=== PATIENT | male | born 1980 | race Caucasian/White ===

== ENCOUNTER 2016-07-31 22:27 | Emergency (ER) | payer BC ==
[~2016-07-31] VITALS: Ht 185.4 cm; Wt 116.6 kg
[2016-07-31] MEDS ORDERED: NKM (22:34)
[2016-07-31 22:36] VITALS: BP 128/83
--- NOTE | 2016-07-31 22:54 | Emergency Room Report ---
History of Present Illness General Chief Complaint: Laceration Source: Patient Present Illness HPI Is a 36-year-old [id number] male presents with a laceration to the right index finger. He was washing dishes and sustained a laceration from a knife. Onset discharge arrival. Denies any other complaint. Bleeding controlled. Throbbing pain. No other injury. Tetanus not up-to-date. Allergies: Coded Allergies: No Known Allergies (Unverified , 07/31/16) Patient History Past Medical History: none, see triage record, old chart reviewed Past Surgical History: none Pertinent Family History: none Social History: Denies: smoking Immunizations: other Reviewed Nursing Documentation: PMH: Agreed, PSxH: Agreed Review of Systems Eye: Denies: blurred vision, eye pain ENT: Denies: ear pain, nose congestion, throat swelling Respiratory: Denies: cough, shortness of breath Cardiovascular: Denies: chest pain, palpitations Gastrointestinal: Denies: abdominal pain, diarrhea, nausea, vomiting Musculoskeletal: Denies: back pain, joint pain Skin: Denies: rash Neurological: Denies: headache, numbness Endocrine: Denies: increased thirst, increased urine Hematologic/Lymphatic: Denies: easy bruising All Other Systems: negative except mentioned in HPI Physical Exam vitals unremarkable Sp02 EP Interpretation: reviewed, normal General Appearance: well appearing, no apparent distress, alert Head: normocephalic, atraumatic Eyes: bilateral eye EOMI, bilateral eye PERRL ENT: hearing grossly normal, normal pharynx Neck: full range of motion, supple, no meningismus Respiratory: chest non-tender, lungs clear, normal breath sounds Cardiovascular #1: regular rate, rhythm, no murmur Gastrointestinal: normal bowel sounds, non tender, no mass, no organomegaly, no bruit, non-distended Musculoskeletal: back normal, gait/station normal, normal range of motion, other - Right index finger: 2 cm laceration to the proximal phalanx. No tendon involvement. No foreign body. MCP, PIP, DIP joint intact. Neurologic: alert, oriented x3 Psychiatric: mood/affect normal Skin: warm/dry Procedures Laceration/Wound Repair Laceration/Wound Repair : Consent: Verbal Wound Location: upper extremity Wound's Depth, Shape: flap, stellate Wound Length (cm): 3 Wound Explored: clean Irrigated w/ Saline (ccs): 1000 Betadine Prep?: No Anesthesia: 1% Lidocaine Volume Anesthetic (ccs): 3 Suture Size/Type: 5:0, proline Number of Sutures: 6 Patient Tolerated: Well Complications: None Medical Decision Making Diagnostic Impression: Primary Impression: Laceration of finger of right hand Qualified Codes: S61.219A - Laceration without foreign body of unspecified finger without damage to nail, initial encounter ER Course Patient with laceration of the right index finger. No foreign body. No tendon laceration. Status: improved Disposition: HOME, SELF-CARE Condition: Stable Scripts Ibuprofen* (MOTRIN*) 600 Mg Tablet 600 MG ORAL THREE TIMES A DAY, #30 TAB 0 Refills Prov: KAROL ORTIZ M.D. 07/31/16 Cephalexin* (KEFLEX*) 500 Mg Capsule 500 MG ORAL TID, #21 CAP 0 Refills Prov: KAROL ORTIZ M.D. 07/31/16 Patient Instructions: Laceration Care, Adult Additional Instructions: Followup with your Dr. in 7 days. Suture out in 7-10 days. Return if symptom worsen. KAROL ORTIZ M.D. Jul 31, 2016 22:54
[2016-07-31] MEDS ORDERED: TdaP Vaccine 0.5ml Syr IM ONE (23:00)
[2016-07-31] MEDS ORDERED: Lidocaine 1% Plain 30 ml INJ ONE (23:00)
[2016-07-31] MEDS ORDERED: IBUPROFEN600 MG ORAL (23:21)
[2016-07-31] MEDS ORDERED: KEFLEX500 MG ORAL (23:21)
[2016-07-31 23:32] VITALS: BP 124/83
== END 2016-07-31 23:32 | disposition home or self-care (01) ==
LOC: EMR 23:10
DX: S61.219A Laceration without foreign body of unspecified finger without damage to nail, initial encounter (principal); W26.0XXA Contact with knife, initial encounter; Y93.G1 Activity, food preparation and clean up; Y92.9 Unspecified place or not applicable; Z23 Encounter for immunization
CPT/HCPCS: 12002; 90471; 90715; 99284; J2001